=== PATIENT | male | born 1985 | race Caucasian/White ===

== ENCOUNTER 2016-12-06 01:57 | Emergency (ER) | payer OTHER ==
[2016-12-06] MEDS ORDERED: NS 0.9% 1000 ML* 1,000 ML IV ONE (03:38)
[2016-12-06] MEDS ORDERED: Al Hydrox/Mg Hydrox/Simet LIQ* 30 ML UDC PO ONE (03:38)
[2016-12-06] MEDS ORDERED: Ondansetron INJ* 2 MG/ML VIAL IV ONE (03:38)
[2016-12-06] MEDS ORDERED: Lidocaine 2% VISCOUS* 15 ML UDC PO ONE (03:38)
[2016-12-06] MEDS ORDERED: Acetaminophen TAB* 325 MG PO ONE (04:25)
[2016-12-06 04:40] VITALS: BP 150/54
--- NOTE | 2016-12-06 07:53 | RAD ---
INDICATION: Foreign body ingestion COMPARISON: None TECHNIQUE: PA and lateral dual-energy views were obtained. FINDINGS: Bones/Soft Tissues: There are no acute bony findings. Cardiomediastinal: The cardiomediastinal silhouette is normal. Lungs: There are no infiltrates. There is no evidence of aspiration of a foreign body. Pleura: There are no pleural effusions. Other: Limited views the upper abdomen demonstrate multiple radiopacities described on the KUB. IMPRESSION: FOREIGN BODY INGESTION WITH MULTIPLE FOREIGN BODIES IN THE ABDOMEN. LUNGS CLEAR.
--- NOTE | 2016-12-06 07:54 | RAD ---
HISTORY: Foreign body ingestion COMPARISONS: None VIEWS: Frontal views of the abdomen. FINDINGS: BOWEL: There is a nonspecific bowel gas pattern, with nondilated small bowel gas noted. There is a moderate amount of stool within the colon. CALCULI: There are no abnormal calculi. BONES AND SOFT TISSUES: There are no osseous abnormalities. OTHER FINDINGS: The lung bases are clear. There is no subphrenic gas. There are multiple radiopaque foreign bodies noted. These include what appear to be a pen, an unidentified device, and several pins, located within the expected location of the stomach. A another pin is located more distally within the expected location of the small bowel. IMPRESSION: 1. MULTIPLE RADIOPAQUE FOREIGN BODIES DESCRIBED ABOVE. 2. NO SUBPHRENIC GAS. 3. NONSPECIFIC BOWEL GAS PATTERN.
--- NOTE | 2016-12-06 21:04 | ED ---
Bernard Mcgowan Billy, scribed for Chris Jerez MD on 12/06/16 at 0344 . GI/ HPI - HPI Summary HPI Summary: Patient is a 31 year-old male coming from [facility] to [facility] for evaluation after he ingested numerous items at 1999 yesterday evening. He states he lost his temper before swallowing the items. He has had similar episodes in the past. In the ED, he complains of epigastric pain, headache, nausea, and vomiting. - History of Current Complaint Chief Complaint: EDAbdPain Time Seen by Provider: 12/06/16 03:14 Stated Complaint: SWALLOWED SEVERAL FOREIGN OBJECTS Hx Obtained From: Patient Onset/Duration: Started Hours Ago Timing: Constant Severity: Moderate Current Severity: Moderate Pain Intensity: 9 Location of Pain: Epigastric Associated Signs and Symptoms: Positive: Nausea, Vomiting Foreign Body: Gastric Aggravating Factor(s): Nothing Alleviating Factor(s): Nothing - Allergy/Home Medications Allergies/Adverse Reactions: Allergies Allergy/AdvReac Type Severity Reaction Status Date / Time No Known Allergies Allergy Verified 12/21/14 22:27 PMH/Surg Hx/FS Hx/Imm Hx Respiratory History: Reports: Hx Asthma Psychiatric History: Reports: Hx Depression Infectious Disease History: No Infectious Disease History: Denies: Traveled Outside the [place] in Last 30 Days - Family History Known Family History: Negative: Hypertension - Social History Alcohol Use: None Substance Use Type: Reports: None Hx Tobacco Use: Yes Smoking Status (MU): Former Smoker Review of Systems Negative: Fever, Chills Negative: Erythema Negative: Sore Throat Negative: Chest Pain Negative: Shortness Of Breath, Cough Positive: Abdominal Pain, Vomiting, Nausea Negative: Myalgia, Edema Negative: Rash Positive: Headache All Other Systems Reviewed And Are Negative: Yes Physical Exam - Summary Physical Exam Summary: Constitutional: Well-developed, Well-nourished, Alert. (-) Distressed Skin: Warm, Dry HENT: Normocephalic; Atraumatic Eyes: Conjunctiva normal Neck: Musculoskeletal ROM normal neck. (-) JVD, (-) Stridor, (-) Tracheal deviation Cardio: Rhythm regular, rate normal, Heart sounds normal; Intact distal pulses; The pedal pulses are 2+ and symmetric. Radial pulses are 2+ and symmetric. (-) Murmur Pulmonary/Chest wall: Effort normal. (-) Respiratory distress, (-) Wheezes, (-) Rales Abd: Soft, (-) Tenderness, (-) Distension, (-) Guarding, (-) Rebound Musculoskeletal: (-) Edema Lymph: (-) Cervical adenopathy Neuro: Alert, Oriented x3 Psych: Mood and affect Normal Triage Information Reviewed: Yes Vital Signs On Initial Exam: Initial Vitals Temp Pulse Resp BP Pulse Ox 99.2 F 96 20 151/53 96 12/06/16 02:00 12/06/16 02:00 12/06/16 02:00 12/06/16 02:00 12/06/16 02:00 Vital Signs Reviewed: Yes Diagnostics - Vital Signs Vital Signs Temp Pulse Resp BP Pulse Ox 12/06/16 03:00 90 135/68 94 12/06/16 02:30 94 148/76 95 12/06/16 02:14 96 95 12/06/16 02:12 151/53 12/06/16 02:00 99.2 F 96 20 151/53 96 - Laboratory Lab Statement: Any lab studies that have been ordered have been reviewed, and results considered in the medical decision making process. - Radiology CXR Radiology Interpretation Completed By: ED Physician - Mass foreign body ingestion, mostly significantly sewing needle which appears to be in the stomach. Abd XR Radiology Interpretation Completed By: ED Physician - Mass foreign body ingestion, mostly significantly sewing needle which appears to be in the stomach. - EKG 0301 EKG Interpretation: NSR 91 bpm, no STEMI GIGU Course/Dx - Course Assessment/Plan: 31 year-old male coming to the ED after ingesting numerous objects. In the ED course, patient was given Maalox, Xylocaine, Zofran, and IV fluids. CXR and abdominal xray shows mass foreign body ingestion, mostly significantly sewing needle which appears to be in the stomach. Patient care discussed with Dr. Stark from [facility] ED, who accepted the transfer since GI is not sexual assault response coordinator at [facility] at this time. - Diagnoses Provider Diagnoses: Stomach FB - Physician Notifications Discussed Care Of Patient With: Dr. Stark ([facility]) @ 0347: accepts transfer. Instructed by Provider To: Transfer Reason For Transfer: Specialty available at [facility] but not sexual assault response coordinator. Discharge - Discharge Plan Condition: Stable Disposition: TRANS HIGHER LVL OF CARE FAC Referrals: Taylor PARKER,Coy Andrade [Primary Care Provider] - The documentation as recorded by the Bernard rosario Billy accurately reflects the service I personally performed and the decisions made by me, Chris Jerez MD.
== END 2016-12-06 04:40 | disposition short-term general hospital (02) ==
LOC: ED 01:57
DX: T18.2XXA Foreign body in stomach, initial encounter (principal); R11.2 Nausea with vomiting, unspecified; R10.9 Unspecified abdominal pain; R51 Headache; Z87.891 Personal history of nicotine dependence; X58.XXXA Exposure to other specified factors, initial encounter; Y93.9 Activity, unspecified; Y92.9 Unspecified place or not applicable
CPT/HCPCS: 71010; 74000; 93005; 96374; 99283; A9270-GY; J2405